=== PATIENT | female | born 1995 | race Caucasian/White ===

== ENCOUNTER 2021-12-06 00:28 | Emergency (ER) | payer MEDICAID ==
[2021-12-06] MEDS ORDERED: Ondansetron 4 MG Tab.DIS PO STA (01:37)
[2021-12-06] MEDS ORDERED: Ketorolac 30 MG/ML SDV IM STA (01:37)
== END 2021-12-06 02:00 | disposition home or self-care (01) ==
LOC: FB.ED 00:28
DX: R10.9 Unspecified abdominal pain (principal); Z87.891 Personal history of nicotine dependence
CPT/HCPCS: 81001; 96372; 99284; J1885; Q0162

== ENCOUNTER 2022-08-30 19:56 | Emergency (ER) | payer MEDICAID ==
[2022-08-30] MEDS ORDERED: Sodium Chloride 0.9% 1,000 ML IV ONE (20:42)
[2022-08-30] MEDS ORDERED: Ondansetron 4 MG/2 ML SDV IVPUSH ONE (20:42)
[2022-08-30 21:23] LABS: ESTIMATED GFR 89 mL/min (>60)
[2022-08-30] MEDS ORDERED: cefTRIAXone 1 GM in Sodium Chloride 0.9% 50 ML IV ONE (22:04)
[2022-08-30] MEDS ORDERED: Ketorolac 30 MG/ML SDV IVPUSH ONE (22:07)
[2022-08-30] MEDS ORDERED: cefTRIAXone 1 GM Vial IVPUSH SCH (22:15)
== END 2022-08-30 22:35 | disposition home or self-care (01) ==
LOC: FB.ED 19:56
DX: J02.0 Streptococcal pharyngitis (principal); R11.2 Nausea with vomiting, unspecified; F17.210 Nicotine dependence, cigarettes, uncomplicated; E66.9 Obesity, unspecified; Z68.42 Body mass index [BMI] 45.0-49.9, adult; Z79.899 Other long term (current) drug therapy; Z90.49 Acquired absence of other specified parts of digestive tract
CPT/HCPCS: 36415; 80053; 85025; 87651; 96361; 96374; 96375; 99284; J0696; J1885; J2405; J7030